=== PATIENT | female | born 1980 | race Caucasian/White ===

== ENCOUNTER 2017-10-13 13:54 | Emergency (ER) | payer OTHER ==
[~2017-10-13] VITALS: Ht 165.1 cm; Wt 61.8 kg
[~2017-10-13 13:54] MED LIST: ABILIFY5 MG PO; ANAFRANIL25 M1 PO; APRI1 EACH PO; B COMPLETE1 EACH PO; CLINDAMYCIN HC300 MG PO; CLONIDINE HCL0.1 MG PO; CYANOCOBALAM1000 MCG PO; DESYREL100 MG PO; EFFEXOR XR150 MG PO; EFFEXOR XR37.5 MG PO; EXCEDRIN EXT1 TABLET NG; FLEXERIL5 MG PO; FLUVOXAMINE MA100 MG PO; IBUPROFEN800 MG PO; KLONOPIN0.5 M1 PO; METHADONE5 MG PO; MINIPRESS1 MG PO; MOTRIN800 MG PO; NEURONTIN300 MG PO; RISPERDAL1 MG PO; RISPERDAL2 MG PO; TRAZODONE HCL100 MG PO; TRAZODONE HCL50 MG PO; VISTARIL50 MG PO; VITAMIN D31000 UNIT PO; WELLBUTRIN SR150 MG PO; WELLBUTRIN XL150 MG PO; XANAX1 MG PO
[2017-10-13] MEDS ORDERED: PREDNISONE50 MG PO (15:27)
[2017-10-13] MEDS ORDERED: FLEXERIL5 MG PO (15:27)
[2017-10-13 15:47] VITALS: BP 142/113
== END 2017-10-13 15:48 | disposition home or self-care (01) ==
LOC: EME 13:54
DX: M54.12 Radiculopathy, cervical region (principal); M54.5 Low back pain; F32.9 Major depressive disorder, single episode, unspecified; F43.10 Post-traumatic stress disorder, unspecified
CPT/HCPCS: 72040; 99281; 99284